=== PATIENT | male | born 1995 | race Caucasian/White ===

== ENCOUNTER → 2021-10-23 15:22 | Outpatient (CLI) | payer OTHER, SELFPAY ==
--- NOTE | 2021-10-23 15:29 | DI.RAD.S_ITS ---
PROCEDURE: XR FOOT RT MIN 3V INDICATIONS: right foot pain TECHNIQUE: 3 views of the foot were acquired. COMPARISON: None. FINDINGS: Bones: No definite fracture or dislocation. Evaluation slightly limited by mild flexion of the distal interphalangeal joints. Soft tissues: No suspicious soft tissue calcifications. IMPRESSION: 1. No definite fracture or dislocation. Dictated by: Stepan Humphrey M.D. on 10/23/2021 at 15:06 Approved by: Stepan Humphrey M.D. on 10/23/2021 at 15:12
== END ==
PROVIDERS: Referring Provider Nurse Practitioner Family; Visit Provider Nurse Practitioner Family
DX: M79.671 Pain in right foot (principal)
CPT/HCPCS: 73630